=== PATIENT | female | born 1995 | race Hispanic/Latino ===

== ENCOUNTER 2023-08-01 00:19 | Emergency (ER) | payer OTHER ==
[~2023-08-01] VITALS: Ht 170.2 cm; Wt 124.7 kg
[2023-08-01 01:00] LABS: BILIRUBIN, URINE NEGATIVE (negative); BLOOD/HGB, URINE NEGATIVE (Negative); KETONE, URINE NEGATIVE (Negative); LEUK ESTERASE, URINE NEGATIVE (negative); NITRITE, URINE NEGATIVE (negative); PH, URINE 6.5 (5-7)
[2023-08-01 01:12] LABS: BASOPHILS 0.9 % (0-2); EOSINOPHILS 0.7 % (0-6); HEMATOCRIT 40.3 % (35.0-50.0); HEMOGLOBIN 13.6 g/dL (12.0-18.0); MCH 29.6 (27-36); MCHC 33.7 g/dl (30-36); MCV 87.9 fl (81-99); MONOCYTES 5.9 % (0-12); NEUTROPHILS 59.5 % (39-80); PLATELET COUNT 294 K/uL (140-440); RBC 4.59 M/ul (4.3-5.7); RDW 14.1 (10.5-15.0)
[2023-08-01 01:22] LABS: ALBUMIN 3.2 g/dL (3.4-5.0); ALBUMIN/GLOBULIN RATIO 0.78 (1.1-2.4); ANION GAP 14.4 (7-21); BILIRUBIN, TOTAL 0.3 ng/dL (0.2-1.0); BUN/CREATININE RATIO 16.17 (6.0-28.6); CALCIUM 8.9 mg/dL (8.5-10.1); CREATININE, SERUM 0.68 mg/dL (0.55-1.02); POTASSIUM 3.4 mmol/L (3.5-5.1); PROTEIN, TOTAL 7.3 g/dL (6.4-8.2)
[2023-08-01] MEDS ORDERED: HYDROCODON-ACE1 EA10 PO (04:30)
[2023-08-01 04:49] VITALS: BP 116/79
[2023-08-01 05:57] LABS: N. GONORRRHOEAE BY PCR NOT DETECTED (NOT DETECT)
== END 2023-08-01 04:50 | disposition home or self-care (01) ==
LOC: ED 00:19
PROVIDERS: Family Medicine
DX: N83.202 Unspecified ovarian cyst, left side (principal)
CPT/HCPCS: 36415; 74177; 76830; 76856; 80053; 81003; 83690; 84703; 85025; 96375; 99284-25; A9270; J1170; J2270; J2405; J7030; Q9967

== ENCOUNTER 2023-12-09 17:32 | Emergency (ER) | payer OTHER ==
[~2023-12-09] VITALS: Ht 170.2 cm; Wt 124.0 kg
[~2023-12-09 17:32] MED LIST: HYDROCODON-ACE1 EA10 PO
--- OUTSIDE RECORDS SUMMARY | 2023-12-09 17:34 | XMS ---
PreManage Notification: BRANDON KINNEY Security Turn Down Attendant Events No recent Security Events currently on file CRITERIA MET - [facility] CARE PROVIDERS -, [facility] Dentist: Station Mechanic Apprentice [facility] PHONE: [phone] -Hanh- Dentist: Station Mechanic Apprentice [facility] PHONE: [phone] Michael has no Care Guidelines for this patient. Daria VISIT COUNT (12 MO.) 3 [facility] TOTAL 4 NOTE: Visits indicate total known visits. ED/UCC VISIT TRACKING (12 MO.) 12/09/2023 17:33 [facility] [place] TYPE: Emergency COMPLAINT: - CHEST PAIN 11/02/2023 00:28 [facility] [place] TYPE: Emergency COMPLAINT: - ABDMOINAL PAIN DIAGNOSES: - Left lower quadrant pain - Pelvic and perineal pain - Personal history of other diseases of the female genital tract 08/01/2023 00:20 [facility] [place] TYPE: Emergency COMPLAINT: - LOWER ABD PAIN DIAGNOSES: - Left lower quadrant pain - Unspecified ovarian cyst, left side 03/14/2023 23:24 [facility] [place] TYPE: Emergency DIAGNOSES: - Acute pharyngitis, unspecified - sob INPATIENT VISIT TRACKING (12 MO.) No inpatient visits to display in this time frame [email or web address]
[2023-12-09] MEDS ORDERED: PANTOPRAZOLE SO40 MG PO (17:56)
[2023-12-09] MEDS ORDERED: METFORMIN HCL500 MG PO (17:56)
[2023-12-09] MEDS ORDERED: MILI 0.25-0.031 EACH PO (17:56)
[2023-12-09] MEDS ORDERED: AMOX TR-K CLV1 EAC1 PO (17:56)
[2023-12-09] MEDS ORDERED: MELOXICAM15 MG PO (17:56)
[2023-12-09] MEDS ORDERED: DICLOFENAC POTA50 MG PO (17:56)
[2023-12-09 18:04] LABS: HEMATOCRIT 41.2 % (35.0-50.0); HEMOGLOBIN 13.4 g/dL (12.0-18.0); MCH 28.7 (27-36); MCHC 32.5 g/dl (30-36); MCV 88.2 fl (81-99); PLATELET COUNT 320 K/uL (140-440); RBC 4.67 M/ul (4.3-5.7); RDW 14.5 (10.5-15.0)
[2023-12-09 18:14] LABS: ALBUMIN 3.5 g/dL (3.4-5.0); ALBUMIN/GLOBULIN RATIO 0.88 (1.1-2.4); BILIRUBIN, TOTAL 0.4 ng/dL (0.2-1.0); BUN/CREATININE RATIO 10.52 (6.0-28.6); CALCIUM 8.7 mg/dL (8.5-10.1); CREATININE, SERUM 0.76 mg/dL (0.55-1.02); MAGNESIUM 2.2 mg/dL (1.8-2.4); PROTEIN, TOTAL 7.5 g/dL (6.4-8.2)
[2023-12-09 18:25] LABS: EOSINOPHILS, MANUAL DIFF 3; LYMPHOCYTES, MANUAL DIFF 52; MONOCYTES, MANUAL DIFF 1; NEUTROPHILS, MANUAL DIFF 44
[2023-12-09] MEDS ORDERED: KETOROLAC TROMETHAMINE 30 MG/ML VIAL IV ONE (18:30)
[2023-12-09 18:50] VITALS: BP 149/84
--- NOTE | 2023-12-11 12:27 | EKG ---
[facility] [address] [place] [address] Signed Normal sinus rhythm Normal ECG No previous ECGs available Confirmed by Marissa Laura MD () on 12/11/2023 12:27:37 PM Electronically Signed By: MARISSA LAURA MD 12/11/23 1227 PATIENT NAME: BRANDON KINNEY Electrocardiogram DATE OF : [birth year] PHYSICIAN: MARISSA LAURA MD REPORT #: [id number] REPORT IS CONFIDENTIAL AND NOT TO BE RELEASED WITHOUT AUTHORIZATION
== END 2023-12-09 18:50 | disposition home or self-care (01) ==
LOC: ED 17:32
PROVIDERS: Emergency Medicine
DX: R09.1 Pleurisy (principal); E11.9 Type 2 diabetes mellitus without complications; Z79.899 Other long term (current) drug therapy; Z79.84 Long term (current) use of oral hypoglycemic drugs
CPT/HCPCS: 36415; 71045; 80053; 83735; 84484; 85025; 85379; 93005; 93010; 96374; 99285-25; J1885

== ENCOUNTER 2024-07-03 22:59 | Emergency (ER) | payer OTHER ==
[~2024-07-03] VITALS: Ht 170.2 cm; Wt 125.6 kg
--- OUTSIDE RECORDS SUMMARY | ~2024-07-03 | XMS | Continuity of Care Document ---
Demographics + + + | Address | [address] | | | [place] [address] | + + + | Preferred Language | Unknown | + + + | Marital Status | Never | + + + | Sikh Affiliation | Unknown | + + + | Race | Unknown | + + + | Ethnic Group | Unknown | + + + Author + + + | Author | [facility] | + + + | Organization | [facility] | + + + | Address | [address] | | | [place] [address] | + + + | Phone | | + + + Care Team Providers + + + + | Care Cad Specialist Name | Role | Phone | + + + + Unavailable | Unavailable | + + + + Unavailable | Unavailable | + + + + Allergies No information. Encounters No information. Functional Status No information. Immunizations No information. Medications + + + + | date | description | facility | + + + + | 2024-05-16 00:00 | mupirocin 0.02 MG/MG | [facility] | | | Topical Ointment | | + + + + | 2024-05-16 00:00 | mupirocin 0.02 MG/MG | [facility] | | | Topical Ointment | | + + + + | 2024-05-16 00:00 | Mupirocin 2% External | [facility] | | | Ointment | | + + + + | 2024-05-16 00:00 | Mupirocin 2% External | [facility] | | | Ointment | | + + + + | 2024-05-29 00:00 | amoxicillin 875 MG / | [facility] | | | clavulanate 125 MG Oral | | | | Tablet | | + + + + | 2024-05-29 00:00 | Amoxicillin-Pot | [facility] | | | Clavulanate 875-125 MG Oral | | | | Tablet | | + + + + Problems No information. Procedures No information. Results/Labs No information. Social History + + + + | date | description | facility | + + + + | 2024-05-18 00:00 | Never smoked tobacco | [facility] | | | (finding) | | + + + + | 2024-05-18 00:00 | Unknown if ever smoked | [facility] | + + + + | 2024-05-30 00:00 | Never smoked tobacco | [facility] | | | (finding) | | + + + + | 2024-05-30 00:00 | Unknown if ever smoked | [facility] | | | | | + + + + Vital Signs + + + + + | date | measurement | value | units | + + + + + | 2024-05-16 00:00 | BMI | 44.2 | 1 | + + + + + | 2024-05-16 00:00 | BP_diastolic | 84 | mmHg | + + + + + | 2024-05-16 00:00 | BP_systolic | 138 | mmHg | + + + + + | 2024-05-16 00:00 | BSA | 2.3 | 1 | + + + + + | 2024-05-16 00:00 | heart_rate | 93 | /min | + + + + + | 2024-05-16 00:00 | height_metric | 168.28 | cm | + + + + + | 2024-05-16 00:00 | height_standard | 66.25 | in | + + + + + | 2024-05-16 00:00 | o2_saturation | 99 | % | + + + + + | 2024-05-16 00:00 | respiration_rate | 16 | /min | + + + + + | 2024-05-16 00:00 | temperature_metric | 36.78 | C | | | | | | + + + + + | 2024-05-16 00:00 | | 98.2 | F | | | temperature_standar | | | | | d | | | + + + + + | 2024-05-16 00:00 | weight_metric | 125.19 | kg | + + + + + | 2024-05-16 00:00 | weight_standard | 276 | lb | + + + + + | 2024-05-16 00:00 | BMI | 44.2 | 1 | + + + + + | 2024-05-16 00:00 | BP_diastolic | 84 | mmHg | + + + + + | 2024-05-16 00:00 | BP_systolic | 138 | mmHg | + + + + + | 2024-05-16 00:00 | BSA | 2.3 | 1 | + + + + + | 2024-05-16 00:00 | heart_rate | 93 | /min | + + + + + | 2024-05-16 00:00 | height_metric | 168.28 | cm | + + + + + | 2024-05-16 00:00 | height_standard | 66.25 | in | + + + + + | 2024-05-16 00:00 | o2_saturation | 99 | % | + + + + + | 2024-05-16 00:00 | respiration_rate | 16 | /min | + + + + + | 2024-05-16 00:00 | temperature_metric | 36.78 | C | | | | | | + + + + + | 2024-05-16 00:00 | | 98.2 | F | | | temperature_standar | | | | | d | | | + + + + + | 2024-05-16 00:00 | weight_metric | 125.19 | kg | + + + + + | 2024-05-16 00:00 | weight_standard | 276 | lb | + + + + + | 2024-05-29 00:00 | BMI | 44.2 | 1 | + + + + + | 2024-05-29 00:00 | BP_diastolic | 84 | mmHg | + + + + + | 2024-05-29 00:00 | BP_systolic | 140 | mmHg | + + + + + | 2024-05-29 00:00 | BSA | 2.3 | 1 | + + + + + | 2024-05-29 00:00 | heart_rate | 104 | /min | + + + + + | 2024-05-29 00:00 | heart_rate | 1|1| | completed | + + + + + | 2024-05-29 00:00 | height_metric | 168.28 | cm | + + + + + | 2024-05-29 00:00 | height_standard | 66.25 | in | + + + + + | 2024-05-29 00:00 | o2_saturation | 99 | % | + + + + + | 2024-05-29 00:00 | temperature_metric | 36.11 | C | | | | | | + + + + + | 2024-05-29 00:00 | | 97 | F | | | temperature_standar | | | | | d | | | + + + + + | 2024-05-29 00:00 | weight_metric | 125.19 | kg | + + + + + | 2024-05-29 00:00 | weight_standard | 276 | lb | + + + + +"
[~2024-07-03 22:59] MED LIST changes: +AMOX TR-K CLV1 EAC1 PO; +DICLOFENAC POTA50 MG PO; +MELOXICAM15 MG PO; +METFORMIN HCL500 MG PO; +MILI 0.25-0.031 EACH PO; +PANTOPRAZOLE SO40 MG PO
[2024-07-03] MEDS ORDERED: ACETAMINOPHEN 500 MG TAB PO ONE (23:30)
[2024-07-03] MEDS ORDERED: IBUPROFEN 800 MG TAB PO ONE (23:30)
[2024-07-04 00:09] LABS: INFLUENZA B NAA NEGATIVE (NEGATIVE); RESPIRATORY SYNCYTIAL VIR NAA NEGATIVE (NEGATIVE)
[2024-07-04] MEDS ORDERED: SODIUM CHLORIDE 0.9% 1,000 ML IV ONE (00:30)
[2024-07-04 00:45] LABS: BASOPHILS 0.6 % (0-2); EOSINOPHILS 0.7 % (0-6); HEMATOCRIT 40.1 % (35.0-50.0); HEMOGLOBIN 13.7 g/dL (12.0-18.0); LYMPHOCYTES 17.3 % (24-44); MCHC 34.2 g/dl (30-36); MCV 87.8 fl (81-99); MONOCYTES 6.8 % (0-12); NEUTROPHILS 74.6 % (39-80); PLATELET COUNT 279 K/uL (140-440); RBC 4.56 M/ul (4.3-5.7); RDW 14.3 (10.5-15.0)
[2024-07-04 01:00] LABS: ALBUMIN 3.7 g/dL (3.4-5.0); ALBUMIN/GLOBULIN RATIO 0.97 (1.1-2.4); ANION GAP 17.3 (7-21); BILIRUBIN, TOTAL 0.5 ng/dL (0.2-1.0); BUN/CREATININE RATIO 9.33 (6.0-28.6); CALCIUM 8.7 mg/dL (8.5-10.1); CREATININE, SERUM 0.75 mg/dL (0.55-1.02); POTASSIUM 3.3 mmol/L (3.5-5.1); PROTEIN, TOTAL 7.5 g/dL (6.4-8.2)
[2024-07-04] MEDS ORDERED: TAMIFLU75 MG PO (01:22)
[2024-07-04] MEDS ORDERED: VENTOLIN HFA18 GM INH (01:22)
[2024-07-04] MEDS ORDERED: ONDANSETRON ODT8 MG PO (01:22)
[2024-07-04] MEDS ORDERED: ONDANSETRON 4 MG HOME.PACK SL ONE (01:30)
[2024-07-04] MEDS ORDERED: GUAIFENESIN/CODEINE 60 ML HOME.PACK PO ONE (01:30)
[2024-07-04 01:50] VITALS: BP 135/70
== END 2024-07-04 01:50 | disposition home or self-care (01) ==
LOC: ED 22:59
PROVIDERS: Family Medicine
DX: J10.1 Influenza due to other identified influenza virus with other respiratory manifestations (principal); E11.9 Type 2 diabetes mellitus without complications; Z79.84 Long term (current) use of oral hypoglycemic drugs; Z79.899 Other long term (current) drug therapy
CPT/HCPCS: 36415; 80053; 85025; 87502; 99284; A9270; J7030; U0002

== ENCOUNTER 2024-07-07 15:48 | Emergency (ER) | payer OTHER ==
[~2024-07-07] VITALS: Ht 170.2 cm; Wt 122.9 kg
--- OUTSIDE RECORDS SUMMARY | ~2024-07-07 | XMS | Continuity of Care Document ---
Demographics + + + | Address | [address] | | | [place] [address] | + + + | Preferred Language | Unknown | + + + | Marital Status | Never | + + + | Jew Affiliation | Unknown | + + + | Race | Unknown | + + + | Ethnic Group | or | + + + Author + + + | Author | [facility] | + + + | Organization | [facility] | + + + | Address | [address] | | | [place] [address] | + + + | Phone | | + + + Care Team Providers + + + + | Care Wire Coating Operator Metal Name | Role | Phone | + + + + Unavailable | Unavailable | + + + + Unavailable | Unavailable | + + + + Allergies No information. Encounters No information. Functional Status No information. Immunizations No information. Medications + + + + | date | description | facility | + + + + | 2024-05-16 00:00 | mupirocin 0.02 MG/MG | [facility] | | | Topical Ointment | | + + + + | 2024-05-16 00:00 | mupirocin 0.02 MG/MG | [facility] | | | Topical Ointment | | + + + + | 2024-05-16 00:00 | Mupirocin 2% External | [facility] | | | Ointment | | + + + + | 2024-05-16 00:00 | Mupirocin 2% External | [facility] | | | Ointment | | + + + + | 2024-05-29 00:00 | amoxicillin 875 MG / | [facility] | | | clavulanate 125 MG Oral | | | | Tablet | | + + + + | 2024-05-29 00:00 | Amoxicillin-Pot | [facility] | | | Clavulanate 875-125 MG Oral | | | | Tablet | | + + + + Problems No information. Procedures No information. Results/Labs No information. Social History + + + + | date | description | facility | + + + + | 2024-05-18 00:00 | Never smoked tobacco | [facility] | | | (finding) | | + + + + | 2024-05-18 00:00 | Unknown if ever smoked | [facility] | + + + + | 2024-05-30 00:00 | Never smoked tobacco | [facility] | | | (finding) | | + + + + | 2024-05-30 00:00 | Unknown if ever smoked | [facility] | | | | | [...]
[~2024-07-07 15:48] MED LIST changes: +ONDANSETRON ODT8 MG PO; +TAMIFLU75 MG PO; +VENTOLIN HFA18 GM INH
--- OUTSIDE RECORDS SUMMARY | 2024-07-07 15:55 | XMS ---
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 EBaudilio VISIT COUNT (12 MO.) [address] [place] [address] TOTAL 5 NOTE: Visits indicate total known visits. ED/UCC VISIT TRACKING (12 MO.) 07/07/2024 15:[address] 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 [place] Emergency COMPLAINT: - CHEST PAIN DIAGNOSES: - senior care (current) use of oral hypoglycemic drugs - Other chest pain - Other [facility] (current) drug therapy - Pleurisy - Type 2 diabetes mellitus without complications 11/02/2023 00:28 [facility] [place] [facility] [place] TYPE: Emergency COMPLAINT: - ABDMOINAL PAIN DIAGNOSES: - Left lower quadrant pain - Pelvic and perineal pain - Personal history of other diseases of the female genital tract 08/01/2023 00:[address] [facility] [address] [facility] [place] TYPE: Emergency COMPLAINT: - LOWER ABD PAIN DIAGNOSES: - Left lower quadrant pain - Unspecified ovarian cyst, left side INPATIENT VISIT TRACKING (12 MO.) No inpatient visits to display in this time frame [id number]
[2024-07-07 22:13] LABS: BASOPHILS 1.4 % (0-2); EOSINOPHILS 1.1 % (0-6); HEMATOCRIT 42.3 % (35.0-50.0); HEMOGLOBIN 14.1 g/dL (12.0-18.0); LYMPHOCYTES 40.4 % (24-44); MCH 29.6 (27-36); MCHC 33.4 g/dl (30-36); MCV 88.4 fl (81-99); MONOCYTES 2.8 % (0-12); NEUTROPHILS 54.3 % (39-80); PLATELET COUNT 288 K/uL (140-440); RBC 4.78 M/ul (4.3-5.7); RDW 14.3 (10.5-15.0)
[2024-07-07 22:33] LABS: ALBUMIN 3.7 g/dL (3.4-5.0); ALBUMIN/GLOBULIN RATIO 0.93 (1.1-2.4); ANION GAP 12.7 (7-21); BILIRUBIN, TOTAL 0.4 ng/dL (0.2-1.0); BUN/CREATININE RATIO 11.42 (6.0-28.6); CALCIUM 8.9 mg/dL (8.5-10.1); CREATININE, SERUM 0.7 mg/dL (0.55-1.02); POTASSIUM 3.7 mmol/L (3.5-5.1); PROTEIN, TOTAL 7.7 g/dL (6.4-8.2)
[2024-07-07 23:33] VITALS: BP 144/94
== END 2024-07-07 23:33 | disposition home or self-care (01) ==
LOC: ED 15:48
PROVIDERS: Internal Medicine
DX: J10.1 Influenza due to other identified influenza virus with other respiratory manifestations (principal); E11.9 Type 2 diabetes mellitus without complications; Z79.84 Long term (current) use of oral hypoglycemic drugs; Z79.899 Other long term (current) drug therapy
CPT/HCPCS: 36415; 80053; 85025; 99284

== ENCOUNTER 2024-11-26 14:05 | Emergency (ER) | payer OTHER | END 2024-11-26 16:59 | disposition home or self-care (01) | LOC: ED 14:05 | DX: R10.32 Left lower quadrant pain (principal); E11.9 Type 2 diabetes mellitus without complications; Z79.899 Other long term (current) drug therapy ==